=== PATIENT | female | born 1965 | race Caucasian/White ===

== ENCOUNTER 2016-05-20 21:59 | Emergency (ER) | payer SELFPAY ==
[~2016-05-20] VITALS: Ht 172.7 cm; Wt 68.0 kg
[~2016-05-20 21:59] MED LIST: CEPH-37 PO
[2016-05-21] MEDS ORDERED: CLINDAMYCIN 600MG IV 50 ML IV ONE (02:00)
[2016-05-21 02:33] LABS: Basophils # (auto) 0.1 uL; Basophils % (auto) 0.5 % (0.0-2.0); Eosinophils # (auto) 0.1 uL; Eosinophils % (auto) 0.6 % (0.0-7.0); Hematocrit 42.8 % (36.0-46.0); Hemoglobin 13.6 g/dL (12.2-16.2); Lymphocytes # (auto) 2.4 uL; Lymphocytes % (auto) 21.2 % (10.0-50.0); Mean Corpuscular Hemoglobin 29.2 pg (28.0-32.0); Mean Corpuscular Hgb Conc. 31.7 g/dL (32.0-36.0); Mean Platelet Volume 8.6 fL (7.4-10.4); Monocytes % (auto) 8.5 % (0.0-12.0); Neutrophils # (auto) 7.9 uL; Neutrophils % (auto) 69.2 % (37.0-80.0); Platelet Count (auto) 393 10^3/uL (140-450); Red Cell Distribution Width 12.9 % (11.6-16.0); White Blood Cell 11.4 10^3/uL (4.4-10.8)
[2016-05-21 02:46] LABS: Albumin 3.1 g/dL (3.4-5.0); BUN/Creatinine Ratio 17.7; Calcium 9.3 mg/dL (8.5-10.1); Potassium 3.6 mmol/L (3.5-5.1)
[2016-05-21 02:48] LABS: Bilirubin, Total 0.3 mg/dL (0.2-1.0); Total Protein 8.3 g/dL (6.4-8.2)
[2016-05-21] MEDS ORDERED: KETOROLAC TROMETH 30 MG/ML 1ML VIAL IV ONE (03:00)
[2016-05-21 03:36] VITALS: BP 102/63
== END 2016-05-21 03:47 | disposition home or self-care (01) ==
LOC: ER 22:02
DX: K04.7 Periapical abscess without sinus (principal); F17.210 Nicotine dependence, cigarettes, uncomplicated; Z88.8 Allergy status to other drugs, medicaments and biological substances; Z90.49 Acquired absence of other specified parts of digestive tract
CPT/HCPCS: 36415; 70360; 80053; 83605; 85025; 87040; 96365; 96375; 99285; J1885; J3490

== ENCOUNTER 2016-09-20 06:37 | Inpatient (IN) | payer SELFPAY ==
[~2016-09-20] VITALS: Ht 167.6 cm; Wt 79.6 kg
[2016-09-20] MEDS ORDERED: cloNIDine HCL 0.1 MG TAB PO ONE (07:45)
[2016-09-20] MEDS ORDERED: PROCHLORPERAZINE MALEATE 10 MG TAB PO ONE (08:00)
[2016-09-20] MEDS ORDERED: SODIUM CHLORIDE 0.9% 1,000 ML IVB ONE (08:00)
[2016-09-20] MEDS ORDERED: METOCLOPRAMIDE HCL 5MG/ml INJ 2ml VIAL IM ONE (08:30)
[2016-09-20 12:18] LABS: Basophils # (auto) 0 uL; Basophils % (auto) 0.4 % (0.0-2.0); Eosinophils # (auto) 0 uL; Eosinophils % (auto) 0.2 % (0.0-7.0); Hematocrit 42.9 % (36.0-46.0); Hemoglobin 14.2 g/dL (12.2-16.2); Lymphocytes # (auto) 1.6 uL; Mean Corpuscular Hgb Conc. 33.1 g/dL (32.0-36.0); Mean Corpuscular Volume 93.6 fL (80.0-100.0); Mean Platelet Volume 9.1 fL (7.4-10.4); Monocytes # (auto) 0.5 uL; Monocytes % (auto) 4.9 % (0.0-12.0); Neutrophils % (auto) 78.5 % (37.0-80.0); Platelet Count (auto) 320 10^3/uL (140-450); White Blood Cell 10.1 10^3/uL (4.4-10.8)
[2016-09-20 12:27] LABS: INR 0.95 (0.9-1.15); Prothrombin Time 10.4 sec (9.37-12.3)
[2016-09-20 12:53] LABS: Magnesium 2.4 mg/dL (1.6-2.6)
[2016-09-20 12:54] LABS: Albumin 3.5 g/dL (3.4-5.0); BUN/Creatinine Ratio 17.2; Bilirubin, Total 0.2 mg/dL (0.2-1.0); Calcium 9.4 mg/dL (8.5-10.1); Potassium 3.8 mmol/L (3.5-5.1); Total Protein 7.6 g/dL (6.4-8.2)
[2016-09-20] MEDS ORDERED: GASTROGRAFIN 30 ML SOL ONE (17:59)
[2016-09-20] MEDS ORDERED: ONDANSETRON HCL 4 MG/2 ML VIAL IV PRN (22:45)
[2016-09-20] MEDS ORDERED: SODIUM CHLORIDE 0.9% 1,000 ML IV SCH (22:45)
[2016-09-20] MEDS ORDERED: ENALAPRILAT 1.25 MG/ML-1ML VIAL IV PRN (22:45)
[2016-09-20] MEDS ORDERED: MORPHINE SULF INJ 2 MG/ML SYRINGE 1ML IV PRN (22:45)
[2016-09-20 23:11] VITALS: BP 120/80
[2016-09-20 23:30] VITALS: BP 120/80
[2016-09-21 05:00] VITALS: BP 122/76
[2016-09-21 07:32] LABS: Basophils # (auto) 0 uL; Basophils % (auto) 0.4 % (0.0-2.0); Eosinophils # (auto) 0.1 uL; Eosinophils % (auto) 1.9 % (0.0-7.0); Hematocrit 40.3 % (36.0-46.0); Hemoglobin 13.4 g/dL (12.2-16.2); Lymphocytes # (auto) 2.4 uL; Lymphocytes % (auto) 44.7 % (10.0-50.0); Mean Corpuscular Hemoglobin 30.8 pg (28.0-32.0); Mean Corpuscular Hgb Conc. 33.2 g/dL (32.0-36.0); Mean Corpuscular Volume 92.8 fL (80.0-100.0); Mean Platelet Volume 9.4 fL (7.4-10.4); Monocytes # (auto) 0.4 uL; Monocytes % (auto) 6.5 % (0.0-12.0); Neutrophils # (auto) 2.5 uL; Neutrophils % (auto) 46.5 % (37.0-80.0); Platelet Count (auto) 323 10^3/uL (140-450); Red Cell Distribution Width 14.4 % (11.6-16.0); White Blood Cell 5.5 10^3/uL (4.4-10.8)
[2016-09-21 07:47] LABS: Calcium 8.6 mg/dL (8.5-10.1); Potassium 3.8 mmol/L (3.5-5.1)
[2016-09-21 09:00] VITALS: BP 119/75
[2016-09-21] MEDS: PANTOPRAZOLE 40 MG TAB PO SCH (12:02)
[2016-09-21] MEDS: SOD CHL 0.9%/ KCL 20MEQ 1,000 ML IV SCH (12:02)
[2016-09-21 13:00] VITALS: BP 154/93
[2016-09-21 17:05] VITALS: BP 143/84
[2016-09-21 19:38] LABS: Urine Bilirubin Negative (Negative); Urine Blood Negative /uL (Negative); Urine Ca Oxalate Crystal FEW (None Seen); Urine Color Yellow (Yellow); Urine Glucose Normal (Normal); Urine Ketone Negative (Negative); Urine Mucus MANY (None Seen); Urine Nitrite Negative (Negative); Urine RBC 2 /hpf (0 - 4); Urine Squamous Epithelial Cell MOD /hpf (<5); Urine Urobilinogen Normal (Negative); Urine pH 6.5 (5.0-8.0)
[2016-09-21 22:00] VITALS: BP 138/90
[2016-09-22] MEDS: SOD CHL 0.9%/ KCL 20MEQ 1,000 ML IV SCH (02:56)
[2016-09-22 05:00] VITALS: BP 145/81
[2016-09-22 09:00] VITALS: BP 135/83
[2016-09-22] MEDS: PANTOPRAZOLE 40 MG TAB PO SCH (10:00)
[2016-09-22 11:20] VITALS: BP 159/107
== END 2016-09-22 13:00 | disposition left against medical advice (07) | DRG 390 ==
LOC: EDBD 06:37 → ER 06:37 → WEST WING 06:38
PROVIDERS: ADMIT Internal Medicine; ATTEND Internal Medicine
DX: K56.60 Unspecified intestinal obstruction (principal); K56.7 Ileus, unspecified; F17.210 Nicotine dependence, cigarettes, uncomplicated; I10 Essential (primary) hypertension; F15.10 Other stimulant abuse, uncomplicated; F12.10 Cannabis abuse, uncomplicated; N83.202 Unspecified ovarian cyst, left side; Z83.3 Family history of diabetes mellitus; Z82.5 Family history of asthma and other chronic lower respiratory diseases; Z82.49 Family history of ischemic heart disease and other diseases of the circulatory system; Z90.49 Acquired absence of other specified parts of digestive tract; Z87.442 Personal history of urinary calculi; Z87.440 Personal history of urinary (tract) infections; Z88.1 Allergy status to other antibiotic agents; Z78.0 Asymptomatic menopausal state; Z71.89 Other specified counseling
CPT/HCPCS: 36415; 71020; 74176; 74250; 76856; 80048; 80053; 80307; 81001; 83690; 83735; 84443; 85025; 85610; 93005; 94761; 96360; 96372; Q0164

== ENCOUNTER 2017-06-06 13:37 | Emergency (ER) | payer MEDICAID ==
[~2017-06-06] VITALS: Ht 165.1 cm; Wt 68.0 kg
[2017-06-06 13:41] VITALS: BP 148/82
== END 2017-06-06 18:20 | disposition left against medical advice (07) ==
LOC: EDBD 13:37 → ER 13:37
DX: R10.9 Unspecified abdominal pain (principal); R11.2 Nausea with vomiting, unspecified; Z53.21 Procedure and treatment not carried out due to patient leaving prior to being seen by health care provider
CPT/HCPCS: 93005

== ENCOUNTER 2019-03-17 08:02 | Emergency (ER) | payer SELFPAY ==
[~2019-03-17] VITALS: Ht 172.7 cm; Wt 77.1 kg
[2019-03-17] MEDS ORDERED: SODIUM CHLORIDE 0.9% 1,000 ML IV ONE ×2 (08:39)
[2019-03-17] MEDS ORDERED: PANTOPRAZOLE 40 MG/10 ML VIAL INJ IV ONE (08:45)
[2019-03-17] MEDS ORDERED: ALUM & MAG HYDROX-SIMETH LIQ(MAALOX) 30 ML PO ONE (09:00)
[2019-03-17] MEDS ORDERED: DONNATAL 5ml ORAL Elix (BELLADONNA ALK-PHENOBARB) PO ONE (09:00)
[2019-03-17] MEDS ORDERED: LIDOCAINE VISCOUS 2% 15ML UD PO ONE (09:00)
[2019-03-17 09:01] LABS: Urine WBC None Seen /hpf (0 - 5)
[2019-03-17 09:21] LABS: Urine Bacteria NONE SEEN /hpf (None Seen); Urine Blood Negative /uL (Negative); Urine Specific Gravity 1.023 (1.001-1.035)
[2019-03-17] MEDS ORDERED: MORPHINE SULFATE 4 MG/ML SYR/VIAL IM ONE (09:45)
[2019-03-17] MEDS ORDERED: ONDANSETRON HCL 4 MG/2 ML VIAL IM ONE (09:45)
[2019-03-17 12:15] VITALS: BP 157/86
== END 2019-03-17 12:39 | disposition home or self-care (01) ==
LOC: EDBD 08:02 → ER 08:09
DX: K29.70 Gastritis, unspecified, without bleeding (principal); F17.210 Nicotine dependence, cigarettes, uncomplicated; F12.10 Cannabis abuse, uncomplicated; Z88.6 Allergy status to analgesic agent
CPT/HCPCS: 81001; 81025; 96372; 99284; J2270; J2405